=== PATIENT | female | born 1995 | race Caucasian/White ===

== ENCOUNTER 2022-06-25 19:56 | Emergency (ER) | payer MEDICAID, OTHER, SELFPAY ==
[2022-06-25] MEDS ORDERED: HYDROcodone/Acetaminophen 5/325 mg Tablet ONE (20:50)
[2022-06-25] MEDS ORDERED: Penicillin V Potassium 250 MG TAB ONE (20:50)
== END 2022-06-25 21:00 | disposition home or self-care (01) ==
LOC: NAV ERS 19:56
DX: K04.4 Acute apical periodontitis of pulpal origin (principal); K02.9 Dental caries, unspecified
CPT/HCPCS: 99282

== ENCOUNTER 2022-09-06 21:00 | Emergency (ER) | payer OTHER | END 2022-09-06 22:10 | disposition home or self-care (01) | LOC: NAV ERS 21:00 | DX: K02.9 Dental caries, unspecified (principal) | CPT/HCPCS: 99282 ==

== ENCOUNTER 2022-11-12 21:28 | Emergency (ER) | payer OTHER | END 2022-11-12 23:12 | disposition home or self-care (01) | LOC: NAV ERS 21:28 | DX: S00.93XA Contusion of unspecified part of head, initial encounter (principal); F17.290 Nicotine dependence, other tobacco product, uncomplicated; V89.2XXA Person injured in unspecified motor-vehicle accident, traffic, initial encounter | CPT/HCPCS: 99283 ==

== ENCOUNTER 2024-04-10 14:02 | Emergency (ER) | payer OTHER, SELFPAY ==
[2024-04-10 15:09] LABS: Bilirubin Negative (Negative); Blood, Urine Trace (Negative); Clarity Clear (Clear); Glucose, Urine (Dipstick) Negative (Negative); Ketone, Urine Negative (Negative); Leukocyte Trace (Negative); Nitrite Negative (Negative); Protein, Urine (Dipstick) Negative (Neg-Trace); Specific Gravity, Urine 1.015 (1.005-1.030); Urobilinogen 0.2 mg/dL (Less than 2)
[2024-04-10 15:10] LABS: Pregnancy Test - Urine (BHCG) Negative (Negative)
[2024-04-10 15:11] LABS: Pregu Control Background? CLEAR/WHITE (CLR/WHITE); Pregu Control Bar Appear? YES (CONTROL BAR); Specific Gravity 1.015 (1.002-1.036)
[2024-04-10 15:14] LABS: CAUTI Indications for Culture Dysuria,urgency,freq; RBC/HPF 0-3 HPF (0-3); WBC/HPF 0-3 HPF (0-3)
[2024-04-10 15:15] LABS: Bacteria/HPF Rare-Few HPF (None Seen)
[2024-04-10 15:16] LABS: Urine Culture Reflex No No
[2024-04-12 20:15] LABS: Chlam.trachomatis by PCR,Urine Not Detected (NotDetected); GC N.gonorrhoeae PCR,UrineVOID Not Detected (NotDetected)
== END 2024-04-10 15:37 | disposition home or self-care (01) ==
LOC: NAV ERS 14:02
DX: K05.00 Acute gingivitis, plaque induced (principal); R30.0 Dysuria; N89.8 Other specified noninflammatory disorders of vagina; F17.290 Nicotine dependence, other tobacco product, uncomplicated
CPT/HCPCS: 81001; 81025; 87491; 87591; 99283

== ENCOUNTER 2024-06-12 16:47 | Emergency (ER) | payer BC, SELFPAY ==
[2024-06-12] MEDS ORDERED: Lorazepam 0.5 MG TAB ONE (17:34)
[2024-06-12] MEDS ORDERED: Ibuprofen 800 MG TAB ONE (18:30)
== END 2024-06-12 18:56 | disposition home or self-care (01) ==
LOC: NAV ERS 16:47
DX: F41.9 Anxiety disorder, unspecified (principal); K08.89 Other specified disorders of teeth and supporting structures; F17.290 Nicotine dependence, other tobacco product, uncomplicated
CPT/HCPCS: 99283